=== PATIENT | female | born 1985 | race Caucasian/White ===

== ENCOUNTER 2016-12-05 19:35 | Emergency (ER) | payer OTHER ==
[~2016-12-05] VITALS: Ht 167.6 cm; Wt 78.0 kg
[~2016-12-05 19:35] MED LIST: ADDE20 PO; GUAI600 PO; LEVO750T33 PO; PRED5PAK PO; REST30CA PO; SYMB160A INH
[2016-12-05 19:44] VITALS: BP 124/85; PULSE 99; RESP 14; TEMP 98.1; O2SAT 100
[2016-12-05] MEDS ORDERED: ADDE20 PO (19:50)
[2016-12-05 20:11] LABS: AUTOMATED NEUTROPHIL # 2.9 TH/MM3 (1.8-7.7); BASOPHIL % 0.6 % (0.0-2.0); EOSINOPHIL # 0.2 TH/MM3 (0-0.4); EOSINOPHIL % 3.6 % (0.0-4.0); HEMATOCRIT 38.8 % (35.0-46.0); HEMO FLAGS DIFF FINAL; LYMPH % 39.2 % (9.0-44.0); LYMPHOCYTE # 2.4 TH/MM3 (1.0-4.8); MEAN CELL VOLUME 84.4 FL (80.0-100.0); MEAN CORPUSCULAR HEMOGLOBIN 28.7 PG (27.0-34.0); MONO % 7.7 % (0.0-8.0); NEUT % 48.9 % (16.0-70.0); PLATELET COUNT 267 TH/MM3 (150-450); RED CELL DISTRIBUTION WIDTH 12.8 % (11.6-17.2)
[2016-12-05 20:39] LABS: ANION GAP 7 MEQ/L (5-15); AST (GOT) 13 U/L (15-37); BICARBONATE 26.3 MEQ/L (21.0-32.0); BLOOD UREA NITROGEN 16 MG/DL (7-18); CHLORIDE 106 MEQ/L (98-107); GLOMERULAR FILTRATION RATE 66 ML/MIN (>89); SODIUM (NA) 139 MEQ/L (136-145)
[2016-12-05 20:42] LABS: ACETAMINOPHEN LESS THAN 2.0 MCG/ML (10.0-30.0); ALKALINE PHOSPHATASE 85 U/L (45-117); ALT (GPT) 15 U/L (10-53); TOTAL BILIRUBIN ADULT 0.3 MG/DL (0.2-1.0)
--- NOTE | 2016-12-05 20:56 | PD ---
HPI Chief Complaint: Psychiatric Symptoms Time Seen by Provider: 19:43 Travel History International Travel<30 days: No Contact w/Intl Traveler<30days: No Traveled to known affect area: No History of Present Illness HPI Patient 31-year-old female presents emergency Department under Neal act. Patient states she's been having some verbal arguments with her mother over the past week and she had to block her on her cell phone. She states that her sister called her today and stated that her mom gave her dog away. When she tells me that her mom give the dog way she becomes tearful. Angry, the patient sent text message to her sister that she was going to kill her mom. Her sister called the police. She is placed under Nela act and brought here. Patient states this just an angry outburst that she didn't mean it. According to Neal act the patient has had suicidal thoughts in the past. She denies any suicidal homicidal ideation now. Denies any physical complaints including chest pain shortness breath abdominal pain nausea vomiting or diarrhea. PFSH Past Medical History Asthma: Yes (from childhood) Blood Disorders: No Bipolar Disorder: Yes Depression: Yes Cancer: No Cardiovascular Problems: No Diabetes: No Diminished Hearing: No Endocrine: No Genitourinary: No Immune Disorder: No Musculoskeletal: No Neurologic: No Psychiatric: Yes Reproductive: No Respiratory: Yes (ASTHMA) Seizures: No Thyroid Disease: No Ulcer: No ?: Not LMP: 11/14/16 Past Surgical History Surgical History: No Previous Surgery Other Surgery: No Social History Alcohol Use: No Tobacco Use: No Substance Use: No Allergies-Medications (Allergen,Severity, Reaction): Coded Allergies: No Known Allergies (Verified , 12/05/16) Reported Meds & Prescriptions Reported Meds & Active Scripts Active Reported Adderall (Amphetamine-Dextroamphetamine) 20 Mg Tab 20 Mg PO DAILY Avoid late evening doses. Space doses at least 4 to 6 hours if more than once/day dosing. Review of Systems Except as stated in HPI: all other systems reviewed are Neg Physical Exam Narrative GENERAL: Well-developed well-nourished no apparent distress SKIN: Focused skin assessment warm/dry. HEAD: Atraumatic. Normocephalic. EYES: Pupils equal and round. No scleral icterus. No injection or drainage. ENT: No nasal bleeding or discharge. Mucous membranes pink and moist. NECK: Trachea midline. No JVD. CARDIOVASCULAR: Regular rate and rhythm. No murmur appreciated. RESPIRATORY: No accessory muscle use. Clear to auscultation. Breath sounds equal bilaterally. GASTROINTESTINAL: Abdomen soft, non-tender, nondistended. Hepatic and splenic margins not palpable. MUSCULOSKELETAL: No obvious deformities. No clubbing. No cyanosis. No edema. NEUROLOGICAL: Awake and alert. No obvious cranial nerve deficits. Motor grossly within normal limits. Normal speech. PSYCHIATRIC: Appropriate mood and affect; insight and judgment normal, denies suicidal homicidal ideation denies audiovisual hallucinations. Clinically sober. Cries when she talks about her dog being given away. Data Data Last Documented VS Vital Signs Date Time Temp Pulse Resp B/P Pulse Ox O2 Delivery O2 Flow Rate FiO2 12/05/16 19:44 98.1 99 14 124/85 100 Orders Complete Blood Count With Diff (12/05/16 19:44) Comprehensive Metabolic Panel (12/05/16 19:44) Psych Screen (12/05/16 19:44) Drug Screen, Random Urine (12/05/16 19:44) Alcohol (Ethanol) (12/05/16 19:44) Salicylates (Aspirin) (12/05/16 19:44) Tylenol (Acetaminophen) (12/05/16 19:44) Labs Laboratory Tests Test 12/05/16 19:57 White Blood Count 6.0 TH/MM3 Red Blood Count 4.60 MIL/MM3 Hemoglobin 13.2 GM/DL Hematocrit 38.8 % Mean Corpuscular Volume 84.4 FL Mean Corpuscular Hemoglobin 28.7 PG Mean Corpuscular Hemoglobin 34.0 % Concent Red Cell Distribution Width 12.8 % Platelet Count 267 TH/MM3 Mean Platelet Volume 6.6 FL Neutrophils (%) (Auto) 48.9 % Lymphocytes (%) (Auto) 39.2 % Monocytes (%) (Auto) 7.7 % Eosinophils (%) (Auto) 3.6 % Basophils (%) (Auto) 0.6 % Neutrophils # (Auto) 2.9 TH/MM3 Lymphocytes # (Auto) 2.4 TH/MM3 Monocytes # (Auto) 0.5 TH/MM3 Eosinophils # (Auto) 0.2 TH/MM3 Basophils # (Auto) 0.0 TH/MM3 CBC Comment DIFF FINAL Differential Comment Sodium Level 139 MEQ/L Potassium Level 4.0 MEQ/L Chloride Level 106 MEQ/L Carbon Dioxide Level 26.3 MEQ/L Anion Gap 7 MEQ/L Blood Urea Nitrogen 16 MG/DL Creatinine 0.99 MG/DL Estimat Glomerular Filtration 66 ML/MIN Rate Random Glucose 97 MG/DL Calcium Level 8.4 MG/DL Total Bilirubin 0.3 MG/DL Aspartate Amino Transf 13 U/L (AST/SGOT) Alanine Aminotransferase 15 U/L (ALT/SGPT) Alkaline Phosphatase 85 U/L Total Protein 7.4 GM/DL Albumin 4.0 GM/DL Salicylates Level LESS THAN 1.7 MG/DL Acetaminophen Level LESS THAN 2.0 MCG/ML Ethyl Alcohol Level LESS THAN 3 MG/DL MDM Medical Decision Making Medical Screen Exam Complete: Yes Emergency Medical Condition: Yes Differential Diagnosis Suicidal statements, depression, adjustment disorder, poor social circumstance. Narrative Course Patient roomed emergency department, she has no physical complaints and no physical exam findings warranting further workup at this time. She is medical stable for psychiatric evaluation and disposition. Basic labs were ordered as part of psychiatric protocol. Diagnosis Primary Impression: Suicidal thoughts Condition: Stable Deven Rhodes MD December 05, 2016 20:56
[2016-12-05] MEDS ORDERED: ACETAMINOPHEN 325 MG TAB PO ONE (21:00)
[2016-12-05 23:27] VITALS: BP 129/62; PULSE 92; RESP 17; TEMP 97.2; O2SAT 98
[2016-12-06 00:41] LABS: BARBITURATES, URINE NEG (NEG); COCAINE, URINE NEG (NEG)
[2016-12-06 00:42] LABS: AMPHETAMINE, URINE POS (NEG)
[2016-12-06 02:05] VITALS: BP 122/58; PULSE 84; RESP 16; O2SAT 97
[2016-12-06 04:24] VITALS: BP 132/60; PULSE 89; RESP 16; O2SAT 98
[2016-12-06 06:19] VITALS: BP 118/66; PULSE 78; RESP 14; O2SAT 99
--- NOTE | 2016-12-06 10:06 | PD ---
History of Present Illness Chief Complaint: Psychiatric Symptoms Time Seen by Provider: 10:00 Travel History International Travel<30 Days: No Contact w/Intl Traveler<30days: No Known affected area: No Legal Status Legal Status: Neal Act Neal Act Signed By: Ness Brian History of Present Illness: History of Present Illness HPI Patient is a 31-year-old female with history of ADHD who presents to emergency Department under a Neal act. The BA report alleges that she sent several text messages stating she was en route to kill her mother due to custody issues with her dog. Per family has suicidal past but never BA. ED documentation is reviewed and included; " Patient states she's been having some verbal arguments with her mother over the past week and she had to block her on her cell phone. She states that her sister called her today and stated that her mom gave her dog away. When she tells me that her mom give the dog way she becomes tearful. Angry, the patient sent text message to her sister that she was going to kill her mom. Her sister called the police. She is placed under Neal act and brought here. Patient states this just an angry outburst that she didn't mean it. She denies any suicidal homicidal ideation now." Patient seen. Record reviewed. One previous contact with [facility] in 2004 at age 17 years. Current toxicology is positive for amphetamines which are prescribed. Awake, alert and oriented female who is calm, cooperative. Speech is clear and logical, coherent. No aldo or hypomania. No indication of any psychosis. Patient denies any hallucinations, delusions or paranoia. No suicidal or homicidal ideation, intent or plan. She reiterates that ave information and is consistent with the documentation. she acknowledges that she was angry and did say ' If she gives my dog away I'm going to kill her". She also states that she was at the police station when the police placed her under a BA and that she was given a choice of either being arrested for domestic assault for her threats or coming to the hospital and she chose to come to the hospital. She has plans on staying with her girlfriend upon discharge and has no contact with her mother. PFSH Past Medical History Asthma: Yes (from childhood) Blood Disorders: No Bipolar Disorder: Yes Depression: Yes Cancer: No Cardiovascular Problems: No Diabetes: No Diminished Hearing: No Endocrine: No Genitourinary: No Immune Disorder: No Musculoskeletal: No Neurologic: No Psychiatric: Yes Reproductive: No Respiratory: Yes (ASTHMA) Seizures: No Thyroid Disease: No Ulcer: No ?: Not LMP: 11/14/16 Past Surgical History Surgical History: No Previous Surgery Other Surgery: No Psychiatric History Psychiatric History Hx Psychiatric Treatment: HBS IN [facility] BA after made comments about not wanting to live. Hx of adhd rx by PCP History of Inpatient Treatment: Yes Guns or firearms in home: No Social History Single female. was living with her mother. 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 Hx Alcohol Use: No Hx Tobacco Use: No Hx Substance Use: No (PT DENIES) Hx of Substance Use Treatment: No Family Psychiatric History None Allergies-Medications (Allergen,Severity, Reaction): Coded Allergies: No Known Allergies (Verified , 12/05/16) Reported Meds & Prescriptions Reported Meds & Active Scripts Active Reported Adderall (Amphetamine-Dextroamphetamine) 20 Mg Tab 20 Mg PO DAILY Avoid late evening doses. Space doses at least 4 to 6 hours if more than once/day dosing. Review of Systems Except as stated in HPI: all other systems reviewed are Neg Exam Alert: Yes [place]: Person (ox4) Mood: Calm Affect: Appropriate Speech: Clear, Logical Eye Contact: Normal Memory Intact: Comment (no impairmetn) Hallucinations: Other (negative) Delusions: No Suicidal: Ideation (denies any) Homicidal: Ideation (denies any ) Insight/Judgement Fair. Not impaired. MDM Medical Decision Making Medical Record Reviewed: Yes Assessment/Plan 31 year old female with hx of ADHD who in context of an argument with her mother made threatening statements directed at her mother.Statement was said in context of argument with her mother over her dog. Does not meet BA criteria. Will lift BA. Orders Complete Blood Count With Diff (12/05/16 19:44) Comprehensive Metabolic Panel (12/05/16 19:44) Psych Screen (12/05/16 19:44) Drug Screen, Random Urine (12/05/16 19:44) Alcohol (Ethanol) (12/05/16 19:44) Salicylates (Aspirin) (12/05/16 19:44) Tylenol (Acetaminophen) (12/05/16 19:44) Ed Urine Pregnancytest Poc (12/05/16 20:56) Acetaminophen (Tylenol) (12/05/16 21:00) Diet Regular Basic (12/06/16 Breakfast) Results Vital Signs Date Time Temp Pulse Resp B/P Pulse Ox O2 Delivery O2 Flow Rate FiO2 12/06/16 06:19 78 14 118/66 99 12/06/16 04:24 89 16 132/60 98 12/06/16 02:05 84 16 122/58 97 12/05/16 23:27 97.2 92 17 129/62 98 12/05/16 19:44 98.1 99 14 124/85 100 Laboratory Tests Test 12/05/16 12/06/16 19:57 00:01 White Blood Count 6.0 Red Blood Count 4.60 Hemoglobin 13.2 Hematocrit 38.8 Mean Corpuscular Volume 84.4 Mean Corpuscular Hemoglobin 28.7 Mean Corpuscular Hemoglobin 34.0 Concent Red Cell Distribution Width 12.8 Platelet Count 267 Mean Platelet Volume 6.6 Neutrophils (%) (Auto) 48.9 Lymphocytes (%) (Auto) 39.2 Monocytes (%) (Auto) 7.7 Eosinophils (%) (Auto) 3.6 Basophils (%) (Auto) 0.6 Neutrophils # (Auto) 2.9 Lymphocytes # (Auto) 2.4 Monocytes # (Auto) 0.5 Eosinophils # (Auto) 0.2 Basophils # (Auto) 0.0 CBC Comment DIFF FINAL Differential Comment Sodium Level 139 Potassium Level 4.0 Chloride Level 106 Carbon Dioxide Level 26.3 Anion Gap 7 Blood Urea Nitrogen 16 Creatinine 0.99 Estimat Glomerular Filtration 66 Rate Random Glucose 97 Calcium Level 8.4 Total Bilirubin 0.3 Aspartate Amino Transf 13 (AST/SGOT) Alanine Aminotransferase 15 (ALT/SGPT) Alkaline Phosphatase 85 Total Protein 7.4 Albumin 4.0 Salicylates Level LESS THAN 1.7 Acetaminophen Level LESS THAN 2.0 Ethyl Alcohol Level LESS THAN 3 Urine Opiates Screen NEG Urine Barbiturates Screen NEG Urine Amphetamines Screen POS Urine Benzodiazepines Screen NEG Urine Cocaine Screen NEG Urine Cannabinoids Screen NEG Diagnosis Primary Impression: Adjustment disorder Ruled Out: Suicidal thoughts Psychiatrically Cleared: Yes Med/ Other Pt Specific Info: No Change to Meds Disposition: 01 DISCHARGE HOME Condition: Stable Problem Qualifiers Primary Impression: Adjustment disorder Qualified Code: F43.22 - Adjustment disorder with anxious mood Jaimie Clark December 06, 2016 10:06
== END 2016-12-06 10:37 | disposition home or self-care (01) ==
LOC: NEDAMB 19:35 → NEPD 12-06 10:37
DX: F43.22 Adjustment disorder with anxiety (principal); F31.9 Bipolar disorder, unspecified
CPT/HCPCS: 80053; 80307; 84703; 85025; 99283